=== PATIENT | male | born 1965 | race Caucasian/White ===

== ENCOUNTER 2016-10-25 12:07 | Inpatient (IN) | payer OTHER ==
[2016-10-25 13:13] VITALS: BMI 27.8
--- NOTE | 2016-10-25 15:11 | HP ---
COWS - Scale Resting Pulse: 0= [place] 80 or Below Sweatin=Flushed/Facial Moisture Restless Observation: 1= Difficult to Sit Still Pupil Size: 0= Normal to Room Light Bone or Joint Aches: 2= Severe Diffuse Aches Runny Nose/ Eye Tearin= Runny Nose/Eyes GI Upset > 30mins: 2= Nausea/Diarrhea Tremor Observation: 2= Slight Tremor Visible Yawning Observation: 2= >3x During Session Anxiety or Irritability: 2=Irritable/Anxious Goose Flesh Skin: 3=Piloerection COWS Score: 18 Admission ROS S - HPI Chief Complaint: I am here for detox. Allergies/Adverse Reactions: Allergies Allergy/AdvReac Type Severity Reaction Status Date / Time No Known Allergies Allergy Verified 10/25/16 14:37 History of Present Illness: pt is a 51yr old male with a history of heroin dependence seeking detox for treatment. Exam Limitations: No Limitations - Ebola screening Have you traveled outside of the country in the last 21 days: No Have you had contact with anyone from an Ebola affected area: No Have you been sick,other than usual withdrawal symptoms: No - Review of Systems Constitutional: Chills, Diaphoresis, Loss of Appetite, Night Sweats, Changes in sleep, Unintentional Wgt. Loss EENT: reports: No Symptoms Reported Respiratory: reports: No Symptoms reported Cardiac: reports: No Symptoms Reported GI: reports: Poor Appetite, Poor Fluid Intake, Indigestion : reports: No Symptoms Reported Musculoskeletal: reports: Muscle Pain Integumentary: reports: Erythema (left hand and antecubital d/t IVD), Flushing, Sweating Neuro: reports: Headache, Tingling, Tremors Endocrine: reports: Excessive Sweating, Flushing, Intolerance to Cold, Intolerance to Heat Hematology: reports: No Symptoms Reported Psychiatric: reports: Judgement Intact, Orientated x3, Agitated, Anxious Other Systems: Reviewed and Negative Patient History - Patient Medical History Hx Anemia: No Hx Asthma: No Hx Chronic Obstructive Pulmonary Disease (COPD): No Hx Cancer: No Hx Cardiac Disorders: No Hx Congestive Heart Failure: No Hx Hypertension: No Hx Hypercholesterolemia: No Hx Pacemaker: No HX Cerebrovascular Accident: No Hx Seizures: No Hx Dementia: No Hx Diabetes: No Hx Gastrointestinal Disorders: No Hx Liver Disease: No Hx Genitourinary Disorders: No Hx Sexually Transmitted Disorders: No Hx Renal Disease (ESRD): No Hx Thyroid Disease: No Hx Human Immunodeficiency Virus (HIV): No (negative) Hx Hepatitis C: No (negative) Hx Depression: No Hx Suicide Attempt: No (denies) Hx Bipolar Disorder: No Hx Schizophrenia: No - Patient Surgical History Past Surgical History: No Hx Neurologic Surgery: No Hx Cataract Extraction: No Hx Cardiac Surgery: No Hx Lung Surgery: No Hx Breast Surgery: No Hx Breast Biopsy: No Hx Abdominal Surgery: No Hx Appendectomy: No Hx Cholecystectomy: No Hx Genitourinary Surgery: No Hx Section: No Hx Orthopedic Surgery: No Anesthesia Reaction: No - PPD History Previous Implant?: Yes Documented Results: Negative w/o proof Implanted On Prior R Admission?: No PPD to be Administered?: Yes - Reproductive History Patient is a Female of Child Bearing Age (11 -55 yrs old): No - Smoking Cessation Smoking history: Current some day smoker Have you smoked in the past 12 months: Yes Aproximately how many cigarettes per day: 6 Hx Chewing Tobacco Use: No Initiated information on smoking cessation: Yes 'Breaking Loose' booklet given: 10/25/16 - Substance & Tx. History Hx Substance Use: Yes Substance Use Type: Heroin Hx Substance Use Treatment: Yes - Substances Abused Heroin Route: Injection Frequency: Daily Amount used: 10 bags Age of first use: 27 Date of Last Use: 10/24/16 Family Disease History - Family Disease History Family History: Denies Admission Physical Exam BHS - Vital Signs Vital Signs: Vital Signs - 24 hr 10/25/16 13:04 Temperature 97.3 F L Pulse Rate 70 Respiratory 18 Rate Blood Pressure 165/101 - Physical General Appearance: Yes: Appropriately Dressed, Moderate Distress, Tremorous, Irritable, Sweating, Anxious HEENTM: Yes: Normal Voice, Nasal Congestion Respiratory: Yes: Lungs Clear, Normal Breath Sounds, No Respiratory Distress Neck: Yes: No masses,lesions,Nodules Breast: Yes: Within Normal Limits Cardiology: Yes: Regular Rhythm, Regular Rate, S1, S2 Abdominal: Yes: Normal Bowel Sounds, Non Tender, Soft Genitourinary: Yes: Within Normal Limits Back: Yes: Normal Inspection Musculoskeletal: Yes: full range of Motion, Back pain Extremities: Yes: Normal Capillary Refill, Normal Inspection, Non-Tender, Tremors Neurological: Yes: Fully Oriented, Alert, Normal Response Integumentary: Yes: Erythema (left arm and left hand with cellulitis d/t IVD pt is on ABX.), Diaphoresis, Track [place] Lymphatic: Yes: Within Normal Limits - Diagnostic (1) Uncomplicated opioid dependence Current Visit: Yes Status: Chronic (2) Nicotine dependence Current Visit: Yes Status: Chronic Qualifiers: Nicotine product type: cigarettes Substance use status: uncomplicated Qualified Code(s): F17.210 - Nicotine dependence, cigarettes, uncomplicated (3) Cellulitis and abscess of hand Current Visit: Yes Status: Acute Comment: pt is on ABX (4) Cellulitis of antecubital fossa Current Visit: Yes Status: Acute Comment: pt is on ABX (5) H/O heartburn Current Visit: Yes Status: Chronic Cleared for Admission S - Detox or Rehab [facility] Level of Care: Medically Managed Detox Regimen/Protocol: Methadone [facility] Breath Alcohol Content Breath Alcohol Content: 0 Urine Drug Screen - Results Drug Screen Negative: No Urine Drug Screen Results: OPI-Opiates, MDMA-Ecstasy
[2016-10-25] MEDS ORDERED: MENTHOL/PHENOL 1 EACH UD MM PRN (15:14)
[2016-10-25] MEDS ORDERED: hydrOXYzine PAMOATE 50 MG CAPSULE (FP) PO PRN (15:14)
[2016-10-25] MEDS ORDERED: MAG HYDROX/AL HYDROX/SIMETH 30 ML UNIT-DOSE CUP PO PRN (15:14)
[2016-10-25] MEDS ORDERED: LOPERAMIDE HCL 2 MG CAPSULE PO PRN (15:14)
[2016-10-25] MEDS ORDERED: guaiFENesin/D-METHORPHAN HB 10 ML UNIT-DOSE CUPS PO PRN (15:14)
[2016-10-25] MEDS ORDERED: ACETAMINOPHEN 325 MG TABLET (FP) PO PRN (15:14)
[2016-10-25] MEDS ORDERED: MAGNESIUM HYDROX 2400MG/30ML ORAL SUSPENSION 30 ML CUP PO PRN (15:14)
[2016-10-25] MEDS ORDERED: diphenhydrAMINE HCL 50 MG CAPSULE PO PRN (15:14)
[2016-10-25] MEDS ORDERED: MAGNESIUM CITRATE 300 ML BOTTLE PO PRN (15:14)
[2016-10-25] MEDS ORDERED: P-EPHED 60MG/TRIPROLIDI 2.5MG TABLET PO PRN (15:14)
[2016-10-25] MEDS ORDERED: LIDOCAINE VISCOUS 2% ORAL/TOP 20 ML UNIT-DOSE CUP MM PRN (15:33)
[2016-10-25] MEDS ORDERED: METHADONE HCL 10 MG TABLET (FOR DETOX USE ONLY) PO ONE ×2 (15:37→23:00)
[2016-10-25] MEDS: diazePAM 5 MG TABLET PO PRN ×2 (17:07→22:57)
[2016-10-25] MEDS: IBUPROFEN 400 MG TABLET (FP) PO SCH ×2 (17:07→22:53)
[2016-10-25] MEDS: CEPHALEXIN MONOHYDRATE 500 MG CAPSULE (UD) PO SCH ×2 (18:44→22:55)
[2016-10-25] MEDS: SULFAMETHOXAZOLE/TRIMETHOPRIM 800MG/160MG D.S. TABLET PO SCH (22:54)
[2016-10-25] MEDS: THIAMINE HCL 100 MG TABLET (FP) PO SCH (22:54)
[2016-10-26] MEDS: IBUPROFEN 400 MG TABLET (FP) PO SCH ×3 (06:03→22:48)
[2016-10-26] MEDS: diazePAM 5 MG TABLET PO PRN ×2 (06:07→22:46)
[2016-10-26] MEDS ORDERED: METHADONE HCL 10 MG TABLET (FOR DETOX USE ONLY) PO ONE (10:00)
[2016-10-26] MEDS: PRENATAL VITAMINS W/ FOLIC ACID TABLET (FP) PO SCH (10:29)
[2016-10-26] MEDS: SULFAMETHOXAZOLE/TRIMETHOPRIM 800MG/160MG D.S. TABLET PO SCH ×2 (10:29→22:46)
[2016-10-26 10:34] LABS: ANION GAP 8 (8-16); CALCIUM 8.4 mg/dL (8.5-10.1); CO2 28 mmol/L (21-32); GLUCOSE,RANDOM 93 mg/dL (74-106)
[2016-10-26 10:38] LABS: ALK PHOS 56 U/L (45-117); BILIRUBIN,TOTAL 0.3 mg/dL (0.2-1.0); CREATININE 0.9 mg/dL (0.7-1.3); SGOT/AST 28 U/L (15-37); SGPT/ALT 37 U/L (12-78); TOT PROT 5.9 g/dl (6.4-8.2)
[2016-10-26 10:42] LABS: MCH 31.3 pg (25.7-33.7); MCHC 35.2 g/dl (32.0-35.9); MEAN CELL VOLUME 88.9 fl (80-96); MEAN PLT VOLUME 9.2 fl (7.5-11.1); PLATELET COUNT 132 K/MM3 (134-434); RDW 12.8 % (11.9-15.9); WHITE BLOOD COUNT 5.4 K/mm3 (4.0-10.0)
[2016-10-26] MEDS: CEPHALEXIN MONOHYDRATE 500 MG CAPSULE (UD) PO SCH ×4 (11:31→22:46)
--- NOTE | 2016-10-26 13:13 | PN ---
S COWS - Scale Resting Pulse: 0= [place] 80 or Below Sweatin= Chills/Flushing Restless Observation: 3= Extraneous Movement Pupil Size: 1= Pupils >than Normal Bone or Joint Aches: 2= Severe Diffuse Aches Runny Nose/ Eye Tearin= Nasal Congestion GI Upset > 30mins: 1= Stomach Cramp Tremor Observation of Outstretched Hands: 1= Tremor [place], Not Seen Yawning Observation: 0= None Anxiety or Irritability: 2=Irritable/Anxious Goose Flesh Skin: 0=Smooth Skin COWS Score: 12 BHS Progress Note (SOAP) Subjective: interrupted sleep, sweats, Objective: 10/26/16 13:15 Vital Signs Temperature 98.1 F 10/26/16 09:43 Pulse Rate 69 10/26/16 09:43 Respiratory Rate 18 10/26/16 09:43 Blood Pressure 120/70 10/26/16 09:43 O2 Sat by Pulse Oximetry (%) Laboratory Tests 10/26/16 10/26/16 10/26/16 07:00 07:00 07:00 WBC 5.4 RBC 4.03 Hgb 12.6 Hct 35.9 MCV 88.9 MCHC 35.2 RDW 12.8 Plt Count 132 L MPV 9.2 Sodium 141 Potassium 4.1 Chloride 105 Carbon Dioxide 28 Anion Gap 8 BUN 15 Creatinine 0.9 Creat Clearance w eGFR > 60 Random Glucose 93 Calcium 8.4 L Total Bilirubin 0.3 AST 28 ALT 37 Alkaline Phosphatase 56 Total Protein 5.9 L Albumin 3.0 L RPR Titer Nonreactive pt aox3 , lying in bed left hand swelling and erythema , from Assessment: 10/26/16 13:16 withdrawal sx's left hand cellulitis Plan: cont. detox increase fluisds warm comprersses, elevate hand sling cont AB'S
--- NOTE | 2016-10-26 13:22 | EKG ---
Test Reason : Blood Pressure : / mmHG Vent. Rate : 061 BPM Atrial Rate : 061 BPM P-R Int : 122 ms QRS Dur : 090 ms QT Int : 390 ms P-R-T Axes : 073 067 032 degrees QTc Int : 392 ms NORMAL SINUS RHYTHM POSSIBLE LEFT ATRIAL ENLARGEMENT BORDERLINE ECG NO PREVIOUS ECGS AVAILABLE Confirmed by RAMON HERNANDEZ, FAUSTO ([id number]) on 10/26/2016 1:22:25 PM Referred By: Evert Brownlee Confirmed By:FAUSTO NAVARRO MD
[2016-10-26 16:29] LABS: URINE APPEARANCE CLEAR; URINE BLOOD NEGATIVE (NEGATIVE); URINE COLOR AMBER; URINE GLUCOSE (UA) NEGATIVE (NEGATIVE); URINE KETONE NEGATIVE (NEGATIVE); URINE LEUK ESTERASE NEGATIVE (NEGATIVE); URINE NITRITE NEGATIVE (NEGATIVE); URINE UROBILINOGEN 4.0 E.U/dl E.U./dl (0.2-1.0)
[2016-10-26 16:50] LABS: URINE PROTEIN 2+ (NEGATIVE)
[2016-10-26 17:10] LABS: URINE MUCUS RARE; URINE RBC 1 /hpf (0-3); URINE WBC 1 /hpf (3-5)
[2016-10-26] MEDS: THIAMINE HCL 100 MG TABLET (FP) PO SCH (22:46)
[2016-10-27] MEDS: IBUPROFEN 400 MG TABLET (FP) PO SCH ×3 (05:59→22:57)
[2016-10-27] MEDS: diazePAM 5 MG TABLET PO PRN ×2 (05:59→22:59)
[2016-10-27] MEDS ORDERED: METHADONE HCL 5 MG TABLET (FOR DETOX USE ONLY) PO ONE (10:00)
[2016-10-27] MEDS: SULFAMETHOXAZOLE/TRIMETHOPRIM 800MG/160MG D.S. TABLET PO SCH ×2 (10:38→22:56)
[2016-10-27] MEDS: PRENATAL VITAMINS W/ FOLIC ACID TABLET (FP) PO SCH (10:38)
[2016-10-27] MEDS: CEPHALEXIN MONOHYDRATE 500 MG CAPSULE (UD) PO SCH ×4 (10:39→22:56)
--- NOTE | 2016-10-27 11:16 | PN ---
BHS COWS - Scale Resting Pulse: 0= [place] 80 or Below Sweatin=Flushed/Facial Moisture Restless Observation: 1= Difficult to Sit Still Pupil Size: 0= Normal to Room Light Bone or Joint Aches: 2= Severe Diffuse Aches Runny Nose/ Eye Tearin= Nasal Congestion GI Upset > 30mins: 0= None Tremor Observation of Outstretched Hands: 1= Tremor [place], Not Seen Yawning Observation: 2= >3x During Session Anxiety or Irritability: 1=Feels Anxious/Irritable Goose Flesh Skin: 0=Smooth Skin COWS Score: 10 S Progress Note (SOAP) Subjective: arm is feeling little better but still some pain sweats irritable Objective: 10/27/16 11:15 Vital Signs Temperature 98.1 F 10/27/16 09:28 Pulse Rate 65 10/27/16 09:28 Respiratory Rate 20 10/27/16 09:28 Blood Pressure 132/87 10/27/16 09:28 O2 Sat by Pulse Oximetry (%) Laboratory Tests 10/26/16 10/26/16 10/26/16 07:00 07:00 07:00 WBC 5.4 RBC 4.03 Hgb 12.6 Hct 35.9 MCV 88.9 MCHC 35.2 RDW 12.8 Plt Count 132 L MPV 9.2 Sodium 141 Potassium 4.1 Chloride 105 Carbon Dioxide 28 Anion Gap 8 BUN 15 Creatinine 0.9 Creat Clearance w eGFR > 60 Random Glucose 93 Calcium 8.4 L Total Bilirubin 0.3 AST 28 ALT 37 Alkaline Phosphatase 56 Total Protein 5.9 L Albumin 3.0 L Urine Color Urine Appearance Urine pH Ur Specific [place] Urine Protein Urine Glucose (UA) Urine Ketones Urine Blood Urine Nitrite Urine Bilirubin Urine Urobilinogen Ur Leukocyte Esterase Urine RBC Urine WBC Ur Epithelial Cells Urine Mucus RPR Titer Nonreactive 10/26/16 15:57 WBC RBC Hgb Hct MCV MCHC RDW Plt Count MPV Sodium Potassium Chloride Carbon Dioxide Anion Gap BUN Creatinine Creat Clearance w eGFR Random Glucose Calcium Total Bilirubin AST ALT Alkaline Phosphatase Total Protein Albumin Urine Color Yodit Urine Appearance Clear Urine pH 6.0 Ur Specific [place] 1.025 Urine Protein 2+ H Urine Glucose (UA) Negative Urine Ketones Negative Urine Blood Negative Urine Nitrite Negative Urine Bilirubin 2.0 Urine Urobilinogen 4.0 e.u/dl Ur Leukocyte Esterase Negative Urine RBC 1 Urine WBC 1 Ur Epithelial Cells Rare Urine Mucus Rare RPR Titer awake/alert ambulating no acute distress Assessment: 10/27/16 11:15 withdrawal sx Plan: continue detox ordered larger sling continue ABX continue warm compress
[2016-10-27] MEDS: THIAMINE HCL 100 MG TABLET (FP) PO SCH (22:57)
[2016-10-28] MEDS: IBUPROFEN 400 MG TABLET (FP) PO SCH ×3 (05:57→22:51)
[2016-10-28] MEDS: diazePAM 5 MG TABLET PO PRN (05:59)
[2016-10-28] MEDS ORDERED: METHADONE HCL 5 MG TABLET (FOR DETOX USE ONLY) PO ONE (10:00)
[2016-10-28] MEDS ORDERED: CYCLOBENZAPRINE HCL 10 MG TABLET (FP) PO PRN (10:10)
--- NOTE | 2016-10-28 10:10 | PN ---
BHS Progress Note (SOAP) Subjective: ALERT,IRRITABLE,ANXIOUS,INTERRUPTED SLEEP,PAIN IN THE BODY Objective: 10/28/16 10:09 Vital Signs Temperature 98.1 F 10/28/16 06:32 Pulse Rate 62 10/28/16 06:32 Respiratory Rate 18 10/28/16 06:32 Blood Pressure 118/70 10/28/16 06:32 O2 Sat by Pulse Oximetry (%) Assessment: 10/28/16 10:09 WITHDRAWAL SYMPTOM Plan: CONTINUE DETOX
[2016-10-28] MEDS: PRENATAL VITAMINS W/ FOLIC ACID TABLET (FP) PO SCH (10:28)
[2016-10-28] MEDS: CEPHALEXIN MONOHYDRATE 500 MG CAPSULE (UD) PO SCH ×4 (10:28→22:50)
[2016-10-28] MEDS: SULFAMETHOXAZOLE/TRIMETHOPRIM 800MG/160MG D.S. TABLET PO SCH ×2 (10:29→22:50)
[2016-10-28] MEDS ORDERED: cloNIDine HCL 0.1 MG TABLET PO ONE (10:36)
[2016-10-28] MEDS: THIAMINE HCL 100 MG TABLET (FP) PO SCH (22:51)
[2016-10-28] MEDS: cloNIDine HCL 0.1 MG TABLET PO SCH (22:51)
[2016-10-29] MEDS: IBUPROFEN 400 MG TABLET (FP) PO SCH ×3 (05:34→22:28)
[2016-10-29] MEDS ORDERED: METHADONE HCL 10 MG TABLET (FOR DETOX USE ONLY) PO ONE (10:00)
[2016-10-29] MEDS: CEPHALEXIN MONOHYDRATE 500 MG CAPSULE (UD) PO SCH ×4 (10:36→22:28)
[2016-10-29] MEDS: PRENATAL VITAMINS W/ FOLIC ACID TABLET (FP) PO SCH (10:36)
[2016-10-29] MEDS: cloNIDine HCL 0.1 MG TABLET PO SCH ×2 (10:36→22:28)
[2016-10-29] MEDS: SULFAMETHOXAZOLE/TRIMETHOPRIM 800MG/160MG D.S. TABLET PO SCH ×2 (10:36→22:28)
--- NOTE | 2016-10-29 12:24 | PN ---
S Progress Note (SOAP) Subjective: Pain, sweats, irritability Objective: 10/29/16 12:23 Vital Signs - 8 hr 10/29/16 10/29/16 06:00 10:35 Temperature 97.9 F 97.5 F L Pulse Rate 56 L 63 Respiratory 18 16 Rate Blood Pressure 123/85 123/77 Laboratory Last Values WBC 5.4 K/mm3 (4.0-10.0) 10/26/16 07:00 RBC 4.03 M/mm3 (4.00-5.60) 10/26/16 07:00 Hgb 12.6 GM/dL (11.7-16.9) 10/26/16 07:00 Hct 35.9 % (35.4-49) 10/26/16 07:00 MCV 88.9 fl (80-96) 10/26/16 07:00 MCHC 35.2 g/dl (32.0-35.9) 10/26/16 07:00 RDW 12.8 % (11.9-15.9) 10/26/16 07:00 Plt Count 132 K/MM3 (134-434) L 10/26/16 07:00 MPV 9.2 fl (7.5-11.1) 10/26/16 07:00 Sodium 141 mmol/L (136-145) 10/26/16 07:00 Potassium 4.1 mmol/L (3.5-5.1) 10/26/16 07:00 Chloride 105 mmol/L (98-107) 10/26/16 07:00 Carbon Dioxide 28 mmol/L (21-32) 10/26/16 07:00 Anion Gap 8 (8-16) 10/26/16 07:00 BUN 15 mg/dL (7-18) 10/26/16 07:00 Creatinine 0.9 mg/dL (0.7-1.3) 10/26/16 07:00 Creat Clearance w eGFR > 60 (>60) 10/26/16 07:00 Random Glucose 93 mg/dL (74-106) 10/26/16 07:00 Calcium 8.4 mg/dL (8.5-10.1) L 10/26/16 07:00 Total Bilirubin 0.3 mg/dL (0.2-1.0) 10/26/16 07:00 AST 28 U/L (15-37) 10/26/16 07:00 ALT 37 U/L (12-78) 10/26/16 07:00 Alkaline Phosphatase 56 U/L (45-117) 10/26/16 07:00 Total Protein 5.9 g/dl (6.4-8.2) L 10/26/16 07:00 Albumin 3.0 g/dl (3.4-5.0) L 10/26/16 07:00 Urine Color Yodit 10/26/16 15:57 Urine Appearance Clear 10/26/16 15:57 Urine pH 6.0 (5.0-8.0) 10/26/16 15:57 Ur Specific [place] 1.025 (1.001-1.035) 10/26/16 15:57 Urine Protein 2+ (NEGATIVE) H 10/26/16 15:57 Urine Glucose (UA) Negative (NEGATIVE) 10/26/16 15:57 Urine Ketones Negative (NEGATIVE) 10/26/16 15:57 Urine Blood Negative (NEGATIVE) 10/26/16 15:57 Urine Nitrite Negative (NEGATIVE) 10/26/16 15:57 Urine Bilirubin 2.0 (NEGATIVE) 10/26/16 15:57 Urine Urobilinogen 4.0 e.u/dl E.U./dl (0.2-1.0) 10/26/16 15:57 Ur Leukocyte Esterase Negative (NEGATIVE) 10/26/16 15:57 Urine RBC 1 /hpf (0-3) 10/26/16 15:57 Urine WBC 1 /hpf (3-5) 10/26/16 15:57 Ur Epithelial Cells Rare /hpf (FEW) 10/26/16 15:57 Urine Mucus Rare 10/26/16 15:57 RPR Titer Nonreactive (NONREACTIVE) 10/26/16 07:00 labs noted Assessment: 10/29/16 12:24 withdrawal sx Plan: continue detox
[2016-10-29] MEDS: THIAMINE HCL 100 MG TABLET (FP) PO SCH (22:28)
[2016-10-30] MEDS ORDERED: METHADONE HCL 5 MG TABLET (FOR DETOX USE ONLY) PO ONE (06:00)
[2016-10-30] MEDS: IBUPROFEN 400 MG TABLET (FP) PO SCH (06:01)
[2016-10-30] MEDS: CEPHALEXIN MONOHYDRATE 500 MG CAPSULE (UD) PO SCH (08:59)
[2016-10-30] MEDS: PRENATAL VITAMINS W/ FOLIC ACID TABLET (FP) PO SCH (08:59)
[2016-10-30] MEDS: SULFAMETHOXAZOLE/TRIMETHOPRIM 800MG/160MG D.S. TABLET PO SCH (09:00)
[2016-10-30] MEDS: cloNIDine HCL 0.1 MG TABLET PO SCH (09:00)
--- NOTE | 2016-10-30 09:37 | DS ---
[facility] Detox Discharge Summary Admission Date: 10/25/16 Discharge Date: 10/30/16 - History Present History: Opioid Dependence Pertinent Past History: Cellulitis of left hand & antecubital area - Physical Exam Results Vital Signs: Vital Signs Temperature 97.7 F 10/30/16 06:00 Pulse Rate 60 10/30/16 06:00 Respiratory Rate 18 10/30/16 06:00 Blood Pressure 127/76 10/30/16 06:00 O2 Sat by Pulse Oximetry (%) Pertinent Admission Physical Exam Findings: Withdrawal sx. & cellulitis of left antecubital area on antibiotics. Laboratory Last Values WBC 5.4 K/mm3 (4.0-10.0) 10/26/16 07:00 RBC 4.03 M/mm3 (4.00-5.60) 10/26/16 07:00 Hgb 12.6 GM/dL (11.7-16.9) 10/26/16 07:00 Hct 35.9 % (35.4-49) 10/26/16 07:00 MCV 88.9 fl (80-96) 10/26/16 07:00 MCHC 35.2 g/dl (32.0-35.9) 10/26/16 07:00 RDW 12.8 % (11.9-15.9) 10/26/16 07:00 Plt Count 132 K/MM3 (134-434) L 10/26/16 07:00 MPV 9.2 fl (7.5-11.1) 10/26/16 07:00 Sodium 141 mmol/L (136-145) 10/26/16 07:00 Potassium 4.1 mmol/L (3.5-5.1) 10/26/16 07:00 Chloride 105 mmol/L (98-107) 10/26/16 07:00 Carbon Dioxide 28 mmol/L (21-32) 10/26/16 07:00 Anion Gap 8 (8-16) 10/26/16 07:00 BUN 15 mg/dL (7-18) 10/26/16 07:00 Creatinine 0.9 mg/dL (0.7-1.3) 10/26/16 07:00 Creat Clearance w eGFR > 60 (>60) 10/26/16 07:00 Random Glucose 93 mg/dL (74-106) 10/26/16 07:00 Calcium 8.4 mg/dL (8.5-10.1) L 10/26/16 07:00 Total Bilirubin 0.3 mg/dL (0.2-1.0) 10/26/16 07:00 AST 28 U/L (15-37) 10/26/16 07:00 ALT 37 U/L (12-78) 10/26/16 07:00 Alkaline Phosphatase 56 U/L (45-117) 10/26/16 07:00 Total Protein 5.9 g/dl (6.4-8.2) L 10/26/16 07:00 Albumin 3.0 g/dl (3.4-5.0) L 10/26/16 07:00 Urine Color [place] 10/26/16 15:57 Urine Appearance Clear 10/26/16 15:57 Urine pH 6.0 (5.0-8.0) 10/26/16 15:57 Ur Specific [place] 1.025 (1.001-1.035) 10/26/16 15:57 Urine Protein 2+ (NEGATIVE) H 10/26/16 15:57 Urine Glucose (UA) Negative (NEGATIVE) 10/26/16 15:57 Urine Ketones Negative (NEGATIVE) 10/26/16 15:57 Urine Blood Negative (NEGATIVE) 10/26/16 15:57 Urine Nitrite Negative (NEGATIVE) 10/26/16 15:57 Urine Bilirubin 2.0 (NEGATIVE) 10/26/16 15:57 Urine Urobilinogen 4.0 e.u/dl E.U./dl (0.2-1.0) 10/26/16 15:57 Ur Leukocyte Esterase Negative (NEGATIVE) 10/26/16 15:57 Urine RBC 1 /hpf (0-3) 10/26/16 15:57 Urine WBC 1 /hpf (3-5) 10/26/16 15:57 Ur Epithelial Cells Rare /hpf (FEW) 10/26/16 15:57 Urine Mucus Rare 10/26/16 15:57 RPR Titer Nonreactive (NONREACTIVE) 10/26/16 07:00 labs noted - Treatment Hospital Course: Detox Protocol Followed, Detoxed Safely, Responded well, Discharged Condition Good, Rehab Referral Accepted Patient has Accepted a Rehab Referral to: [facility] - Medication Discharge Medications: Ambulatory Orders Cephalexin [Keflex] 500 mg PO Q6H 10/25/16 Ibuprofen [Motrin -] 400 mg PO PRN 10/25/16 Sulfamethoxazole/Trimethoprim [Sulfamethoxazole-Tmp Ds Tablet] 1 each PO Q12H - Diagnosis (1) Cellulitis and abscess of hand Current Visit: Yes Status: Acute (2) Cellulitis of antecubital fossa Current Visit: Yes Status: Acute (3) Nicotine dependence Current Visit: Yes Status: Chronic Qualifiers: Nicotine product type: cigarettes Substance use status: uncomplicated Qualified Code(s): F17.210 - Nicotine dependence, cigarettes, uncomplicated (4) Uncomplicated opioid dependence Current Visit: Yes Status: Chronic - AMA Did Patient Leave Against Medical Advice: No
[2016-10-30 09:39] VITALS: BP 116/79; PULSE 67; TEMP 96.3
== END 2016-10-30 09:11 | disposition home or self-care (01) | DRG 773 ==
LOC: YASAS 12:07 → Y6N 15:35
PROVIDERS: ADMIT Internal Medicine Addiction Medicine; ATTEND Internal Medicine Addiction Medicine
PROC: HZ2ZZZZ Detoxification Services for Substance Abuse Treatment (ICD-10-PCS; principal; 2016-10-25)
DX: F11.23 Opioid dependence with withdrawal (principal); F17.210 Nicotine dependence, cigarettes, uncomplicated; L03.114 Cellulitis of left upper limb; L02.512 Cutaneous abscess of left hand
CPT/HCPCS: 36415; 80053; 81003; 81015; 85027; 86593; 93005; 93010